=== PATIENT | female | born 1990 | race Caucasian/White ===

== ENCOUNTER 2017-05-21 10:31 | Emergency (ER) | payer MEDICAID, MEDICARE ==
[~2017-05-21] VITALS: Ht 160 cm; Wt 73.0 kg
[2017-05-21] MEDS ORDERED: ONDANSETRON 4MG ODT PO STA (11:37)
[2017-05-21] MEDS ORDERED: ACETAMINOPHEN 500MG TABLET PO ONE (11:45)
[2017-05-21 12:25] VITALS: BP 119/73
== END 2017-05-21 12:48 | disposition home or self-care (01) ==
LOC: ER 11:09
DX: S81.012A Laceration without foreign body, left knee, initial encounter (principal); W01.0XXA Fall on same level from slipping, tripping and stumbling without subsequent striking against object, initial encounter; Y93.89 Activity, other specified; Y92.89 Other specified places as the place of occurrence of the external cause
CPT/HCPCS: 99283